=== PATIENT | female | born 1940 | race Caucasian/White ===

== ENCOUNTER 2024-05-21 11:40 | Outpatient (AMB) | payer MEDICARE, SELFPAY ==
--- NOTE | 2024-05-21 11:44 | MHC.PC.OV ---
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 Accompanied by: Self / Same As Patient Allergies codeine Allergy (Severe, Verified 05/21/24 11:54) Gastrointestinal Upset Tobacco use date assessed: 05/21/24 Fall risk assessment: No Falls in past year Last assessed Fall Risk: 05/21/24 Dental Screening Dental Screen Date: 05/21/24 Did you have a dental visit in the last 12 months?: Yes Did you have a dental problem in the last 6 months where you did not have access to dental care?: No Was dental information given to patient?: Patient has dentist HPI HPI Comments History of Present Illness Details 83 year old female with a past medical history of hypertension, hyperlipidemia, AD, left breast cancer presenting for follow up Has been having issues with cheilits for some time, Irritation worse of upper lip. No tongue or throat swelling. No new medications CV: On amlodipine 10mg daily, hctz-lisinopril 12.5/20mg daily, pravastatin. Denies palpitations headaches, vision changes. She endorses chronic shortness of breath. Denies interval change Neuro: Cognitive impairment. On donepezil. Follows with the memory clinic. Completed neuropsych testing 10/2021 suggestive of cognitive impairment, potentially of alzheimer type. Lives along with dog, completes ADLS, drives. Her son manages her finances. She is just following up with telehealth now and would like to transfer meds to pcp Heme/Onc patient continues to follow with breast center yearly, complete yearly mammograms. continues anastrazole. ROS see HPI PHYSICAL EXAM: GENERAL: Alert and oriented x 3. NAD EYES: EOMI. Anicteric. HENT: Moist mucous membranes. No scleral icterus. No cervical lymphadenopathy. LUNGS: Clear to auscultation bilaterally. CARDIOVASCULAR: Regular rate and rhythm. No murmur. No JVD. ABDOMEN: Soft, non-tender +bs EXTREMITIES: No edema. Non-tender. SKIN: mild swelling, perioral redness, chapping of upper lip NEUROLOGIC: No focal neurological deficits. CN II-XII grossly intact PSYCHIATRIC: Cooperative. Appropriate mood and affect [facility] Medical History (Updated 05/23/24 @ 10:51 by Jeni Smith MD) Weakness Vomiting Left thyroid nodule Breast cancer, left breast Cognitive impairment Hemorrhoids Hypertension Hyperlipidemia Surgical History (Updated 05/21/24 @ 12:08 by Allyson Troy CMA) History of colonoscopy History of laparoscopic cholecystectomy Status post cataract extraction and insertion of intraocular lens of left eye History of lumpectomy of left breast History of colpocleisis Family History (Updated 05/21/24 @ 12:18 by Allyson Troy CMA) Mother Dementia CAD (coronary artery disease) Father Stomach cancer Sister Alzheimer dementia Chronic kidney disease CAD (coronary artery disease) Brother Cirrhosis of liver Diabetes Social History (Updated 05/21/24 @ 12:10 by Allyson Troy CMA) Household Members: None Housing: House 75 years or older and lives alone: No Alcohol intake: never Patient Tobacco Use Status: Never used Tobacco e-Cigarette/Vaping Use: Never Used service: No Current occupational status: retired Sexual orientation: Straight/Heterosexual Gender identity: Female Cognitive needs: Yes Hearing needs: No Vision needs: No Questionnaire PHQ-9 Over the last 2 weeks, how often have you been bothered by any of the following problems? 1. Little interest or pleasure in doing things: not at all 2. Feeling down, depressed, or hopeless: not at all 3. Trouble falling or staying asleep, or sleeping too much: several days 4. Feeling tired or having little energy: several days 5. Poor appetite or overeating: not at all 6. Feeling bad about yourself - or that you are a failure or have let yourself or your family down: not at all 7. Trouble concentrating on things, such as reading the newspaper or watching television: not at all 8. Moving or speaking so slowly that other people could have noticed. Or the opposite - being so fidgety or restless that you have been moving around a lot more than usual: not at all 9. Thoughts that you would be better off or of hurting yourself in some way: not at all Total score: 2 Depression Screening Interpretation: Negative Depression Screening Done: Yes 61130 - PHQ-9 Billing: Yes Source: Developed by Drs. Omar Izaguirre, Kalia Aceves and colleagues, with an educational april from [employer]. Thrive Questionnaire Date Thrive assessed: 05/21/24 I am a: Patient What is your living situation today?: I have a steady place to live Within the past 12 months, did the food you bought not last and you didn't have the money to get more?: Never true Within the past 12 months, did you worry whether your food would run out before you got money to buy more?: Never true Do you have trouble paying for medicines?: No Do you have trouble getting transportation to medical appointments?: No Do you have trouble paying your heating and electricity bill?: No Do you have trouble taking care of your child, family member or friend?: No Do you have trouble with day-to-day activities such as bathing, preparing meals, shopping, managing finances, etc.?: No Are you currently unemployed and looking for a job?: No Are you interested in more education?: No Please select the resources that you would like help with: None Currently or been in a relationship where the following occur: No concerns reported THRIVE Score: 0 AUDIT C Alcohol Use Questionnaire (AUDIT-C) 1. How often do you have a drink containing alcohol?: Never 3. How often do you have six or more drinks on one occasion?: Never Total Score: 0 HATTIE-7 AMB Questionnaire HATTIE-7 Date HATTIE - 7 assessed: 05/21/24 Feeling nervous, anxious, or on edge: 0 = Not at all Not being able to stop or control worryin = Not at all Worrying too much about different things: 0 = Not at all Trouble relaxin = Not at all Being so restless that it is hard to sit still: 0 = Not at all Becoming easily annoyed or irritable: 0 = Not at all Feeling afraid as if something awful might happen: 0 = Not at all Total HATTIE-7 score (0-4 normal; 5-9 mild; 10-14 moderate; 15-21 severe): 0 Source: Developed by Radha Ortiz Kurt Kroenke and colleagues, with an educational april from [employer]. HATTIE-7 Assessment Billing HATTIE-7 Assessment Tool: HATTIE-7 Assessment 84121 Physical exam (Primary Care) Vital Signs: Last Vital Signs Pulse 101 H 05/21/24 11:45 Resp 13 05/21/24 11:45 BP 136/58 L 05/21/24 11:45 Pulse Ox 99 05/21/24 11:45 Oxygen Delivery Method Room Air 05/21/24 11:45 BMI result Body Mass Index 23.1 Tobacco/Smoking Status: Tobacco use Status Tobacco use date assessed 05/21/24 05/21/24 11:55 Patient Tobacco Use Status Never used Tobacco 05/21/24 12:10 e-Cigarette/Vaping Use Never Used 05/21/24 12:10 PHQ-9: PHQ-9 Score PHQ-9: Total score 2 05/23/24 10:52 Depression Screening Interpretation: Negative Thrive Assessment: Date of Thrive Assessment Date Thrive assessed 05/21/24 05/21/24 12:01 Currently or been in a relationship where the following occur: No concerns reported Assessment and Plan Assessment & Plan (1) Cheilitis due to atopic dermatitis: Code(s): K13.0 - Diseases of lips; L20.9 - Atopic dermatitis, unspecified Plan: topical low dose steroid. Avoid swallowing. Two doses for fluconazole (2) Breast cancer, left breast: Comment: ILC, T1b Nx, Stage 1, ER/AR positive, Her-2/shyla negative, 2016 Code(s): C50.912 - Malignant neoplasm of unspecified site of left female breast Qualifiers: Breast location: unspecified site of breast Estrogen receptor status: unspecified Patient sex: female Qualified Code(s): C50.912 - Malignant neoplasm of unspecified site of left female breast Plan: continue anastrazole (3) Cognitive impairment: Code(s): R41.89 - Other symptoms and signs involving cognitive functions and awareness (4) Hypertension: Code(s): I10 - Essential (primary) hypertension Medications: New triamcinolone acetonide 0.1% 1 appl topical BID 14 days 30 grams 0RF fluconazole 150 mg PO Q3D 2 tabs 0RF Coding Level of Care Code Est Pt Level 5 (38849) Complex EM visit Add On G2211 Diagnoses Cheilitis due to atopic dermatitis K13.0; L20.9 Malignant neoplasm of left female breast, unspecified estrogen receptor status, unspecified site of breast C50.912 Breast location: unspecified site of breast Estrogen receptor status: unspecified Patient sex: female Cognitive impairment R41.89 Hypertension I10 Additional Codes HATTIE-7 Assessment Billing - HATTIE-7 Assessment Tool: HATTIE-7 Assessment [id number] ([id number])
[2024-05-21 11:45] VITALS: BP 136/58; PULSE 101; RESP 13; O2SAT 99; BMI 23.1
== END 2024-05-21 12:13 | disposition home or self-care (01) ==
PROVIDERS: PCP Internal Medicine; Visit Provider Internal Medicine
DX: I10 Essential (primary) hypertension (principal); C50.912 Malignant neoplasm of unspecified site of left female breast; K13.0 Diseases of lips; L20.9 Atopic dermatitis, unspecified; R41.89 Other symptoms and signs involving cognitive functions and awareness
CPT/HCPCS: 99214; G2211

== ENCOUNTER 2024-11-15 14:22 | Outpatient (AMB) | payer MEDICARE, SELFPAY ==
--- NOTE | 2024-11-15 14:24 | MHC.PC.OV ---
Vital Signs 11/15/24 14:27 Height 5 ft 6 in BP 122/58 L Blood Pressure Location Lt brachial Position Sitting Pulse 78 Pulse Source Pulse Oximeter Pulse Oximetry (%) 98 Oxygen Delivery Method Room Air Intake Visit Reasons: swv [id number] Intake Note: Medical annual wellness Mental Health Professional Required: No Allergies codeine Allergy (Severe, Verified 11/15/24 14:25) Gastrointestinal Upset Tobacco use date assessed: 05/21/24 Dental Screening Dental Screen Date: 05/21/24 HPI HPI Comments History of Present Illness Details 83 year old female with a past medical history of hypertension, hyperlipidemia, AD, left breast cancer presenting for AWV HRA reviewed. No issues identified 3/3 Memory Negative fall risk CV: On amlodipine 10mg daily, hctz-lisinopril 12.5/20mg daily, pravastatin. Denies palpitations headaches, vision changes. She endorses stable chronic shortness of breath. Denies interval change Neuro: Cognitive impairment. On donepezil. Follows with the memory clinic. Completed neuropsych testing 10/2021 suggestive of cognitive impairment, potentially of alzheimer type. Lives along with dog, completes ADLS, drives. Her son manages her finances. She is just following up with telehealth now and would like to transfer meds to pcp Heme/Onc: She reports no longer following patient continues to follow with breast center yearly, complete yearly mammograms. continues anastrazole. ROS see HPI PHYSICAL EXAM: GENERAL: Alert and oriented x 3. NAD EYES: EOMI. Anicteric. HENT: Moist mucous membranes. No scleral icterus. No cervical lymphadenopathy. LUNGS: Clear to auscultation bilaterally. CARDIOVASCULAR: Regular rate and rhythm. No murmur. No JVD. ABDOMEN: Soft, non-tender +bs EXTREMITIES: No edema. Non-tender. SKIN: mild swelling, perioral redness, chapping of upper lip NEUROLOGIC: No focal neurological deficits. CN II-XII grossly intact PSYCHIATRIC: Cooperative. Appropriate mood and affect [facility] Medical History (Updated 11/21/24 @ 19:44 by Jeni Smith MD) Weakness Vomiting Left thyroid nodule Breast cancer, left breast Cognitive impairment Hemorrhoids Hypertension Hyperlipidemia Surgical History History of colonoscopy History of laparoscopic cholecystectomy Status post cataract extraction and insertion of intraocular lens of left eye History of lumpectomy of left breast History of colpocleisis Family History (Updated 11/15/24 @ 14:27 by Bebe Godoy CMA) Mother Dementia CAD (coronary artery disease) Father Stomach cancer Sister Alzheimer dementia Chronic kidney disease CAD (coronary artery disease) Brother Cirrhosis of liver Diabetes Social History (Updated 11/15/24 @ 14:27 by Bebe Godoy CMA) Household Members: None Housing: House 75 years or older and lives alone: No Alcohol intake: never Patient Tobacco Use Status: Never used Tobacco e-Cigarette/Vaping Use: Never Used Use of substances other than those prescribed or required for medical reasons: No service: No Current occupational status: retired Sexual orientation: Straight/Heterosexual Gender identity: Female Cognitive needs: Yes Hearing needs: No Vision needs: No Questionnaire Thrive Questionnaire Date Thrive assessed: 05/21/24 HATTIE-7 AMB Questionnaire HATTIE-7 Date HATTIE - 7 assessed: 05/21/24 Source: Developed by Drs. Omar Izaguirre, Radha Giron, Kalia Heck and colleagues, with an educational april from [employer]. Physical exam (Primary Care) Vital Signs: Last Vital Signs Pulse 78 11/15/24 14:27 BP 122/58 L 11/15/24 14:27 Pulse Ox 98 11/15/24 14:27 Oxygen Delivery Method Room Air 11/15/24 14:27 Tobacco/Smoking Status: Tobacco use Status Tobacco use date assessed 05/21/24 11/15/24 14:29 Patient Tobacco Use Status Never used Tobacco 11/15/24 14:29 e-Cigarette/Vaping Use Never Used 11/15/24 14:29 Thrive Assessment: Date of Thrive Assessment Date Thrive assessed 05/21/24 11/15/24 14:29 Coding Level of Care Code Est Pt Level 4 (42279) Diagnoses Encounter for annual wellness visit (AWV) in Medicare patient Z00.00 Primary hypertension I10 Hypertension type: primary hypertension Cognitive impairment R41.89 Assessment & Plan Assessment & Plan (1) Encounter for annual wellness visit (AWV) in Medicare patient: Code(s): Z00.00 - Encounter for general adult medical examination without abnormal findings Category: Medical Plan: HRA reviewed, scanned Medications reconciled (2) Hypertension: Code(s): I10 - Essential (primary) hypertension Category: Medical Qualifiers: Hypertension type: primary hypertension Qualified Code(s): I10 - Essential (primary) hypertension Plan: Controlled on current medication (3) Cognitive impairment: Code(s): R41.89 - Other symptoms and signs involving cognitive functions and awareness Category: Medical Plan: continue donepezil Orders: Orders Comprehensive Met. Panel 11/15/24 C50.912 - Malignant neoplasm of unspecified site of left female breast, E78.5 - Hyperlipidemia, unspecified, I10 - Essential (primary) hypertension, R41.89 - Other symptoms and signs involving cognitive functions and awareness Lipid Panel 11/15/24 C50.912 - Malignant neoplasm of unspecified site of left female breast, E78.5 - Hyperlipidemia, unspecified, I10 - Essential (primary) hypertension, R41.89 - Other symptoms and signs involving cognitive functions and awareness Complete Blood Count Auto Diff 11/15/24 C50.912 - Malignant neoplasm of unspecified site of left female breast, E78.5 - Hyperlipidemia, unspecified, I10 - Essential (primary) hypertension, R41.89 - Other symptoms and signs involving cognitive functions and awareness TSH reflex Free T4 11/15/24 C50.912 - Malignant neoplasm of unspecified site of left female breast, E78.5 - Hyperlipidemia, unspecified, I10 - Essential (primary) hypertension, R41.89 - Other symptoms and signs involving cognitive functions and awareness Medications: New amlodipine 10 mg PO DAILY 90 tabs 3RF pravastatin 20 mg PO DAILY 90 tabs 3RF donepezil 10 mg PO DAILY 90 tabs 3RF lisinopril-hydrochlorothiazide 20-12.5 mg 1 tab PO DAILY 90 tabs 3RF Discontinued fluconazole Discontinued Reason: Doctor's Order 150 mg PO Q3D 2 tabs 0RF
[2024-11-15 14:27] VITALS: BP 122/58; PULSE 78; O2SAT 98
== END 2024-11-15 16:02 | disposition home or self-care (01) ==
PROVIDERS: PCP Internal Medicine; Visit Provider Internal Medicine
DX: Z00.00 Encounter for general adult medical examination without abnormal findings (principal); I10 Essential (primary) hypertension; R41.89 Other symptoms and signs involving cognitive functions and awareness

== ENCOUNTER → 2024-11-15 14:22 | Outpatient (BNVA) | payer MEDICARE, SELFPAY | PROVIDERS: PCP Internal Medicine; Visit Provider Internal Medicine | DX: Z00.00 Encounter for general adult medical examination without abnormal findings (principal); I10 Essential (primary) hypertension; E78.5 Hyperlipidemia, unspecified; R41.89 Other symptoms and signs involving cognitive functions and awareness; Z79.899 Other long term (current) drug therapy | CPT/HCPCS: 99212 ==

== ENCOUNTER 2024-12-21 10:26 | Outpatient (AMB) | payer MEDICARE, SELFPAY ==
--- NOTE | 2024-12-21 10:43 | MHC.PC.OV ---
Vital Signs 12/21/24 10:47 Height 5 ft 6 in Weight 140 lb BMI 22.6 BP 132/70 Blood Pressure Location Lt brachial Position Sitting Respiration 14 Pulse 84 Pulse Source Pulse Oximeter Temp 98 F Temp Source Oral Pulse Oximetry (%) 94 Oxygen Delivery Method Room Air Intake Visit Reasons: Cough Intake Note: Cough since Friday. No covid or flu test. 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 some fatigue, generally feeling tired, flulike. Minimal wheezing. Has not checked temp CV: On amlodipine 10mg daily, hctz-lisinopril 12.5/20mg daily, pravastatin. Denies palpitations headaches, vision changes. Neuro: Cognitive impairment. On donepezil. Follows with the memory clinic. Completed neuropsych testing 10/2021 suggestive of cognitive impairment, potentially of alzheimer type. Lives along with dog, completes ADLS, drives. Her son manages her finances. Heme/Onc: She reports no longer following patient continues to follow with breast center yearly, complete yearly mammograms. continues anastrazole. ROS see HPI PHYSICAL EXAM: GENERAL: Alert and oriented x 3. NAD EYES: EOMI. Anicteric. HENT: Moist mucous membranes. No scleral icterus. No cervical lymphadenopathy. LUNGS: Clear to auscultation bilaterally. CARDIOVASCULAR: Left sided rhonci ABDOMEN: Soft, non-tender +bs EXTREMITIES: No edema. Non-tender. SKIN: mild swelling, perioral redness, chapping of upper lip NEUROLOGIC: No focal neurological deficits. CN II-XII grossly intact PSYCHIATRIC: Cooperative. Appropriate mood and affect [facility] Medical History Weakness Vomiting Left thyroid nodule Breast cancer, left breast Cognitive impairment Hemorrhoids Hypertension Hyperlipidemia Surgical History History of colonoscopy History of laparoscopic cholecystectomy Status post cataract extraction and insertion of intraocular lens of left eye History of lumpectomy of left breast History of colpocleisis Family History Mother Dementia CAD (coronary artery disease) Father Stomach cancer Sister Alzheimer dementia Chronic kidney disease CAD (coronary artery disease) Brother Cirrhosis of liver Diabetes Social History Household Members: None Housing: House 75 years or older and lives alone: No Alcohol intake: never Patient Tobacco Use Status: Never used Tobacco e-Cigarette/Vaping Use: Never Used service: No Current occupational status: retired Sexual orientation: Straight/Heterosexual Gender identity: Female Cognitive needs: Yes Hearing needs: No Vision needs: No Questionnaire PHQ-9 Over the last 2 weeks, how often have you been bothered by any of the following problems? 1. Little interest or pleasure in doing things: not at all 2. Feeling down, depressed, or hopeless: not at all 3. Trouble falling or staying asleep, or sleeping too much: not at all 4. Feeling tired or having little energy: not at all 5. Poor appetite or overeating: not at all 6. Feeling bad about yourself - or that you are a failure or have let yourself or your family down: not at all 7. Trouble concentrating on things, such as reading the newspaper or watching television: not at all 8. Moving or speaking so slowly that other people could have noticed. Or the opposite - being so fidgety or restless that you have been moving around a lot more than usual: not at all 9. Thoughts that you would be better off or of hurting yourself in some way: not at all Total score: 0 Depression Screening Interpretation: Negative Depression Screening Done: Yes 95692 - PHQ-9 Billing: Yes Source: Developed by Drs. Omar Izaguirre, Radha Giron, Kalia Heck and colleagues, with an educational april from [employer]. Thrive Questionnaire Date Thrive assessed: 05/21/24 I am a: Patient What is your living situation today?: I have a steady place to live Within the past 12 months, did the food you bought not last and you didn't have the money to get more?: I choose not to answer this question Within the past 12 months, did you worry whether your food would run out before you got money to buy more?: I choose not to answer this question Do you have trouble paying for medicines?: I choose not to answer this question Do you have trouble getting transportation to medical appointments?: Yes Do you have trouble paying your heating and electricity bill?: I choose not to answer this question Do you have trouble taking care of your child, family member or friend?: I choose not to answer this question Do you have trouble with day-to-day activities such as bathing, preparing meals, shopping, managing finances, etc.?: I choose not to answer this question Are you currently unemployed and looking for a job?: I choose not to answer this question Are you interested in more education?: I choose not to answer this question Please select the resources that you would like help with: Transportation Currently or been in a relationship where the following occur: I choose not to answer THRIVE Score: 1 AUDIT C Alcohol Use Questionnaire (AUDIT-C) 1. How often do you have a drink containing alcohol?: Never Total Score: 0 HATTIE-7 AMB Questionnaire HATTIE-7 Date HATTIE - 7 assessed: 05/21/24 Feeling nervous, anxious, or on edge: 0 = Not at all Not being able to stop or control worryin = Not at all Worrying too much about different things: 0 = Not at all Trouble relaxin = Not at all Being so restless that it is hard to sit still: 0 = Not at all Becoming easily annoyed or irritable: 0 = Not at all Feeling afraid as if something awful might happen: 0 = Not at all Total HATTIE-7 score (0-4 normal; 5-9 mild; 10-14 moderate; 15-21 severe): 0 Source: Developed by Drs. Omar Izaguirre, Radha Giron, Kalia Heck and colleagues, with an educational april from [employer]. Physical exam (Primary Care) Vital Signs: Last Vital Signs Temp 98 F 12/21/24 10:47 Pulse 84 12/21/24 10:47 Resp 14 12/21/24 10:47 BP 132/70 12/21/24 10:47 Pulse Ox 94 12/21/24 10:47 Oxygen Delivery Method Room Air 12/21/24 10:47 BMI result Body Mass Index 22.6 Tobacco/Smoking Status: Tobacco use Status Tobacco use date assessed 05/21/24 12/21/24 10:44 Patient Tobacco Use Status Never used Tobacco 12/21/24 10:44 e-Cigarette/Vaping Use Never Used 12/21/24 10:44 PHQ-9: PHQ-9 Score PHQ-9: Total score 0 12/21/24 10:54 Depression Screening Interpretation: Negative Thrive Assessment: Date of Thrive Assessment Date Thrive assessed 05/21/24 12/21/24 10:44 Currently or been in a relationship where the following occur: I choose not to answer Coding Level of Care Code Est Pt Level 4 (30619) Diagnoses Acute cough R05.1 Cough type: acute Additional Codes PHQ-9 - 52114 - PHQ-9 Billing: Yes ([id number]) Assessment & Plan Assessment & Plan (1) Cough: Code(s): R05.9 - Cough, unspecified Category: Medical Qualifiers: Cough type: acute Qualified Code(s): R05.1 - Acute cough Plan: Given left sided rhonci, clinical symptoms will prescribed doxycycline, tessalon perles If no improvement or resolution will obtain imaging. Call for persistent or worsening symptoms Medications: New doxycycline hyclate 100 mg PO BID 20 tabs 0RF benzonatate 100 mg PO BID PRN 20 caps 0RF cough doxycycline hyclate 100 mg PO BID 20 tabs 0RF benzonatate 100 mg PO BID PRN 20 caps 0RF cough
[2024-12-21 10:47] VITALS: BP 132/70; PULSE 84; RESP 14; TEMP 36.6; O2SAT 94; BMI 22.6
--- OUTSIDE RECORDS SUMMARY | 2024-12-21 11:17 | XMS_ITS | Clinical Summary ---
Author Organization [facility] Address [address] [place] [id number] Care Team Providers Care Care Transition Mgr Name Role Phone Michael Vásquez MD Primary Care Provider [phone] Allergies No known active allergies Medications Medication Sig Dispensed Refills Start Date End Date Status lisinopril 20 MG TABS 1 tablet, hydrochlorothiazide 12.5 MG CAPS 1 capsule Take 1 tablet by mouth daily. 0 Active amLODIPine (NORVASC) tablet 5 mg Take 5 mg by mouth daily. 0 Active Marshall-3 Fatty Acids (FISH OIL PO) Take by mouth. 0 Active naproxen (NAPROSYN) 500 MG tablet Take 500 mg by mouth as needed. 0 Active pravastatin (PRAVACHOL) tablet 20 mg Take 20 mg by mouth daily. 0 Active CALCIUM 600-D 600-400 MG-UNIT TABS TAKE 1 TABLET BY MOUTH DAILY. 90 tablet 1 04/29/2018 Active desoximetasone (TOPICORT) 0.05 % cream Apply 1 application topically 2 (two) times a day. 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, estrogen receptor positive 11/03/2017 Family History Medical History Relation Name Comments Liver disease Brother No Sig Med Hx Daughter 1 No Sig Med Hx Daughter 2 Cancer Father stomach No Sig Med Hx Mother Heart attack Sister 1 Alzheimer's disease Sister 2 No Sig Med Hx Son Relation Name Status Comments Brother (Age 55) Daughter 1 Alive Daughter 2 Alive Father Mother (Age 94) Sister 1 (Age 69) Sister 2 Alive Son Alive Social History Tobacco Use Types Packs/Day Years Used Date Smoking Tobacco: Never Smokeless Tobacco: Never Alcohol Use Standard Drinks/Week Comments No 0 (1 standard drink = 0.6 oz pur e alcohol) Sex and Gender Information Value Date Recorded Sex Assigned at Not on file Gender Identity Not on file Sexual Orientation Not on file Last Filed Vital Signs Vital Sign Reading Time Taken Comments Blood Pressure 146/56 10/27/2019 9:22 AM EST Pulse 79 10/27/2019 9:22 AM EST Temperature 36.8 ??C (98.3 ??F) 10/27/2019 9 :22 AM EST Respiratory Rate - - Oxygen Saturation 98% 06/30/2019 9:1 8 AM EDT complains of shortness of breath Inhaled Oxygen Concentration - - Weight 73 kg (161 lb) 10/27/2019 9:22 AM EST Height 167.6 cm (5' 6 ) 10/27/2019 9:22 AM EST Body Mass Index 25.99 10/27/2019 9:22 AM EST Plan of Treatment Health Maintenance Due Date Last Done Comments COVID-19 Vaccine (#1) 1946 Pneumococcal Vaccine (1 of 2 - PCV) 1947 Depression Screening 1953 Preventative Health Evaluation 1959 DTap / Tdap / Td (1 - Tdap) 1960 Shingrix-Zoster Vaccine (1 of 2) 1960 Fall Risk Assessment 2006 Osteoporosis Screening (DEXA Scan) 2006 RSV Adult > 60+ Yrs or Pregn ant (1 - 1-dose 75+ series) 2016 Influenza Vaccine (#1) 2024 Hepatitis B Vaccines Aged Out No long er eligible based on patient's age to complete this topic RSV Ped < 20 months Aged Out No longe r eligible based on patient's age to complete this topic Care Teams Care Transition Mgr Relationship Specialty Start Date End Date Michael Vásquez MD [address] [place] [address], [facility] [address] [place], [place] [id number] PCP - General Wax Pattern Assembler 11/03/17
== END 2024-12-21 11:02 | disposition home or self-care (01) ==
PROVIDERS: PCP Internal Medicine; Visit Provider Internal Medicine
DX: R05.1 Acute cough (principal)

== ENCOUNTER → 2024-12-21 10:26 | Outpatient (BNVA) | payer MEDICARE, SELFPAY | PROVIDERS: PCP Internal Medicine; Visit Provider Internal Medicine | DX: R05.1 Acute cough (principal); I10 Essential (primary) hypertension; G31.84 Mild cognitive impairment of uncertain or unknown etiology; C50.919 Malignant neoplasm of unspecified site of unspecified female breast; Z79.811 Long term (current) use of aromatase inhibitors; Z79.899 Other long term (current) drug therapy | CPT/HCPCS: 96127; 99212 ==

== ENCOUNTER 2025-08-09 15:03 | Outpatient (AMB) | payer MEDICARE, SELFPAY ==
--- NOTE | 2025-08-09 15:24 | MHC.PC.OV ---
Vital Signs 08/09/25 15:26 BMI Reason not done Patient refused/unable BP 118/48 L Blood Pressure Location Lt brachial Position Sitting Respiration 14 Pulse 74 Pulse Source Pulse Oximeter Temp 98.2 F Temp Source Oral Pulse Oximetry (%) 95 Oxygen Delivery Method Room Air Intake Visit Reasons: shaikh/ outpatient echo? Intake Note: Emergency room follow up Newspaper Inserter Required: No Allergies codeine Allergy (Severe, Verified 08/09/25 15:24) Gastrointestinal Upset Tobacco use date assessed: 08/09/25 Fall risk assessment: 1 Fall in past year Last assessed Fall Risk: 08/09/25 Dental Screening Dental Screen Date: 05/21/24 HPI HPI Comments History of Present Illness Details 83 year old female with a past medical history of hypertension, hyperlipidemia, AD, left breast cancer presenting for ER follow up The patient was evaluated at [facility] on 06/24/2025. Presented with a two week history of back pain. She had tripped 2 weeks prior. Mid, lower back. Was not using cane at the time of the fall. CT performed. no abd/pelvis acute. 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 She notes back pain is still bothersome. Taking tylenol at home. Does not want stronger medication. Ok for lidocaine patches. was recommended to have PT. She lives home alone. Has been recommended to ambulate with a cane. She has memory loss but does not want to leave her home or pet. CV: On amlodipine 10mg daily, hctz-lisinopril 12.5/20mg daily, pravastatin. Denies palpitations headaches, vision changes. Neuro: Cognitive impairment. On donepezil. Was previously seen with the memory clinic-she does not recall this testing/visits. Completed neuropsych testing 10/2021 suggestive of cognitive impairment, potentially of alzheimer type. Lives along with dog, completes ADLS, drives. Her son manages her finances. Heme/Onc: She reports no longer following patient continues to follow with breast center yearly, complete yearly mammograms. ROS see HPI PHYSICAL EXAM: GENERAL: Alert and oriented x 3. NAD EYES: EOMI. Anicteric. HENT: Moist mucous membranes. No scleral icterus. No cervical lymphadenopathy. LUNGS: Clear to auscultation bilaterally. CARDIOVASCULAR: Clear to auscultation ABDOMEN: Soft, non-tender +bs EXTREMITIES: No edema. Non-tender. SKIN: warm, dry no rashes NEUROLOGIC: No focal neurological deficits. CN II-XII grossly intact PSYCHIATRIC: Cooperative. Appropriate mood and affect [facility] Medical History Weakness Vomiting Left thyroid nodule Breast cancer, left breast Cognitive impairment Hemorrhoids Hypertension Hyperlipidemia Surgical History History of colonoscopy History of laparoscopic cholecystectomy Status post cataract extraction and insertion of intraocular lens of left eye History of lumpectomy of left breast History of colpocleisis Family History Mother Dementia CAD (coronary artery disease) Father Stomach cancer Sister Alzheimer dementia Chronic kidney disease CAD (coronary artery disease) Brother Cirrhosis of liver Diabetes Social History Household Members: None Housing: House 75 years or older and lives alone: No Alcohol intake: never Patient Tobacco Use Status: Never used Tobacco e-Cigarette/Vaping Use: Never Used service: No Current occupational status: retired Sexual orientation: Straight/Heterosexual Gender identity: Female Cognitive needs: Yes Hearing needs: No Vision needs: No Questionnaire Thrive Questionnaire Date Thrive assessed: 12/21/24 I am a: Patient What is your living situation today?: I have a steady place to live Within the past 12 months, did the food you bought not last and you didn't have the money to get more?: I choose not to answer this question Within the past 12 months, did you worry whether your food would run out before you got money to buy more?: I choose not to answer this question Do you have trouble paying for medicines?: I choose not to answer this question Do you have trouble getting transportation to medical appointments?: Yes Do you have trouble paying your heating and electricity bill?: I choose not to answer this question Do you have trouble taking care of your child, family member or friend?: I choose not to answer this question Do you have trouble with day-to-day activities such as bathing, preparing meals, shopping, managing finances, etc.?: I choose not to answer this question Are you currently unemployed and looking for a job?: I choose not to answer this question Are you interested in more education?: I choose not to answer this question Please select the resources that you would like help with: Transportation Currently or been in a relationship where the following occur: I choose not to answer THRIVE Score: 1 AUDIT C Alcohol Use Questionnaire (AUDIT-C) 1. How often do you have a drink containing alcohol?: Never 3. How often do you have six or more drinks on one occasion?: Never Total Score: 0 HATTIE-7 AMB Questionnaire HATTIE-7 Date HATTIE - 7 assessed: 05/21/24 Source: Developed by Drs. Omar Izaguirre, Radha Giron, Kalia Heck and colleagues, with an educational april from [employer]. Physical exam (Primary Care) Vital Signs: Last Vital Signs Temp 98.2 F 08/09/25 15:26 Pulse 74 08/09/25 15:26 Resp 14 08/09/25 15:26 BP 118/48 L 08/09/25 15:26 Pulse Ox 95 08/09/25 15:26 Oxygen Delivery Method Room Air 08/09/25 15:26 Tobacco/Smoking Status: Tobacco use Status Tobacco use date assessed 08/09/25 08/09/25 15:29 Patient Tobacco Use Status Never used Tobacco 08/09/25 15:29 e-Cigarette/Vaping Use Never Used 08/09/25 15:29 Thrive Assessment: Date of Thrive Assessment Date Thrive assessed 12/21/24 08/09/25 15:29 Currently or been in a relationship where the following occur: I choose not to answer Coding Level of Care Code Est Pt Level 4 (15828) Complex EM visit Add On G2211 Diagnoses Fall, subsequent encounter W19.XXXD Encounter type: subsequent encounter Bilateral low back pain, unspecified chronicity, unspecified whether sciatica present M54.50 Back pain location: low back pain Chronicity: unspecified Back pain laterality: bilateral Sciatica presence: unspecified whether sciatica present Primary hypertension I10 Hypertension type: primary hypertension Cognitive impairment R41.89 Assessment & Plan Assessment & Plan (1) Fall: Code(s): W19.XXXA - Unspecified fall, initial encounter Category: Medical Qualifiers: Encounter type: subsequent encounter Qualified Code(s): W19.XXXD - Unspecified fall, subsequent encounter (2) Back pain: Code(s): M54.9 - Dorsalgia, unspecified Category: Medical Qualifiers: Back pain location: low back pain Chronicity: unspecified Back pain laterality: bilateral Sciatica presence: unspecified whether sciatica present Qualified Code(s): M54.50 - Low back pain, unspecified (3) Hypertension: Code(s): I10 - Essential (primary) hypertension Category: Medical Qualifiers: Hypertension type: primary hypertension Qualified Code(s): I10 - Essential (primary) hypertension (4) Cognitive impairment: Code(s): R41.89 - Other symptoms and signs involving cognitive functions and awareness Category: Medical Plan 84 year old presenting for follow up ER course reviewed. Continues to have some back pain. Is essentially homebound. In WC today. home PT order requested Discussed memory loss. She declines FLAT IRONER. Does not want to move out of the home stop lisinopril hctz. start lower dose lisinopril to 10mg to avoid dehydration, orthostasis Labs ordered Orders: Orders UA and rflx microscopic 08/09/25 E78.5 - Hyperlipidemia, unspecified, I10 - Essential (primary) hypertension, R29.6 - Repeated falls, Z13.0 - Encounter for screening for diseases of the blood and blood-forming organs and certain disorders involving the immune mechanism Urine Culture 08/09/25 E78.5 - Hyperlipidemia, unspecified, I10 - Essential (primary) hypertension, R29.6 - Repeated falls, Z13.0 - Encounter for screening for diseases of the blood and blood-forming organs and certain disorders involving the immune mechanism TSH reflex Free T4 08/09/25 E78.5 - Hyperlipidemia, unspecified, I10 - Essential (primary) hypertension, R29.6 - Repeated falls, Z13.0 - Encounter for screening for diseases of the blood and blood-forming organs and certain disorders involving the immune mechanism Complete Blood Count Auto Diff 08/09/25 E78.5 - Hyperlipidemia, unspecified, I10 - Essential (primary) hypertension, R29.6 - Repeated falls, Z13.0 - Encounter for screening for diseases of the blood and blood-forming organs and certain disorders involving the immune mechanism Comprehensive Met. Panel 08/09/25 E78.5 - Hyperlipidemia, unspecified, I10 - Essential (primary) hypertension, R29.6 - Repeated falls, Z13.0 - Encounter for screening for diseases of the blood and blood-forming organs and certain disorders involving the immune mechanism Magnesium 08/09/25 E78.5 - Hyperlipidemia, unspecified, I10 - Essential (primary) hypertension, R29.6 - Repeated falls, Z13.0 - Encounter for screening for diseases of the blood and blood-forming organs and certain disorders involving the immune mechanism Referrals Home Health Referral M54.9 - Dorsalgia, unspecified, W19.XXXA - Unspecified fall, initial encounter Medications: New lisinopril 10 mg PO DAILY 90 tabs 3RF lidocaine 5% leave on most painful area for up to 12 hrs 2 patches topical DAILY 60 ea 3RF Discontinued lisinopril-hydrochlorothiazide 20-12.5 mg Discontinued Reason: Duplicate 1 tab PO DAILY 90 tabs 3RF
[2025-08-09 15:26] VITALS: BP 118/48; PULSE 74; RESP 14; TEMP 36.8; O2SAT 95
--- OUTSIDE RECORDS SUMMARY | 2025-08-09 18:03 | XMS_ITS ---
Author Name [facility] Organization Unknown Care Team Organization Name Specialty Phone Email Start Date End Da te [facility] NULL Primary Care 09/16/2023 07/05/2024
--- OUTSIDE RECORDS SUMMARY | 2025-08-09 18:03 | XMS_ITS | Clinical Summary ---
Author Organization [facility] Address [address] [place] [address] Phone Care Team Providers Care Lapel Stitcher Name Role Phone Jeni Gil MD Primary Care Provider Allergies Active Allergy Reactions Criticality Noted Date Comments Codeine 04/20/2024 Other Reaction(s): GI upset Medications amLODIPine (NORVASC) 10 MG tablet Take 1 tablet by mouth every morning. 02/26/2024 Active donepeziL (ARICEPT) 10 MG tablet Take 1 tablet by mouth every morning. 03/31/2024 Active lisinopril-hydro CHLOROthiazide (PRINZIDE,ZESTOR ETIC) 20-12.5 mg per tablet Take 1 tablet by mouth every morning. 04/10/2024 Active pravastatin (PRAVACHOL) 20 MG tablet Take 1 tablet by mouth every morning. 03/13/2024 Active aspirin 81 MG EC tablet Take 81 mg by mouth. 04/10/2023 Active Social History Tobacco Use Types Packs/Day Years Used Date Smoking Tobacco: Never Smokeless Tobacco: Never Tobacco Cessation:Counseling Given: Not Answered Education Answer Date Recorded Are you interested in more education? Not on yara e 04/20/2024 Are you concerned about learning? Not on file 04/20/2024 No 04/20/2024 No 04/20/2024 Digital Access Answer Date Recorded No 04/20/2024 No 04/20/2024 Reliable internet access at home? Not on file 04/20/2024 Device with a working camera? Not on file Comments Unknown Sex and Gender Information Value Date Recorded Sex Assigned at Not on file Legal Sex Female 9:42 AM EDT Gender Identity Not on file Sexual Orientation Not on file Last Filed Vital Signs Vital Sign Reading Time Taken Comments Blood Pressure 148/75 04/20/2024 9:48 AM EDT Pulse 72 04/20/2024 9:48 AM EDT Temperature 36.8 C (98.2 F) 04/20/2024 9:48 AM EDT Respiratory Rate 16 04/20/2024 9:48 AM EDT Oxygen Saturation 98% 04/20/2024 9:48 AM EDT Inhaled Oxygen Concentration - - Weight - - Height - - Body Mass Index - - Plan of Treatment Health Maintenance Due Date Last Done Comments Adult Td,Tdap Booster 1941 CREATININE LEVEL 1941 POTASSIUM LEVEL 1941 DEPRESSION SCREENING 1953 PNEUMOCOCCAL VACCINES (50+ y ears) (1 of 1 - PCV) 1991 ZOSTER VACCINES (1 of 2) 1991 OSTEOPOROSIS SCREENING INITI AL (ONE-TIME) 2006 RSV VACCINE (1 - 1-dose 75+ series) 2016 INFLUENZA VACCINE (#1) 2025 COVID-19 VACCINE ( - 2023-2 5 season) 2025 HEPATITIS A VACCINES Aged Out No long er eligible based on patient's age to complete this topic HIB VACCINES Aged Out No longer eligi ble based on patient's age to complete this topic MENINGOCOCCAL VACCINES (ACWY) Aged Out No longer eligible based on patient's age to complete this topic MENINGOCOCCAL VACCINES (B) Aged Out N o longer eligible based on patient's age to complete this topic Medical Devices Not on file Insurance [employer] HMO REPLACEMENT MEDICARE HMO REPLACEMENT [employer] HMO REPLACEMENT [employer] MEDIC[employer] HMO REPLACEMENT [address] [address] MEDICARE HMO REPLACEMENT [employer] H[employer] REPLACEMENT Care Teams Lapel Stitcher Relationship Specialty Start Date End Date Jeni Gil MD PCP - General Internal Medicine 04/20/24 Additional Source Comments The information contained in this document represents components of the legal health record. It is not the complete legal health record.[facility]
--- OUTSIDE RECORDS SUMMARY | 2025-08-09 18:03 | XMS_ITS | Clinical Summary ---
Author Organization [facility] Address [address] [place] [id number] Care Team Providers Care Automobile Washer Steam Name Role Phone Michael Vásquez MD Primary Care Provider [phone] Allergies No known active allergies Medications Medication Sig Dispensed Refills Start Date End Date Status lisinopril 20 MG TABS 1 tablet, hydrochlorothiazide 12.5 MG CAPS 1 capsule Take 1 tablet by mouth daily. 0 Active amLODIPine (NORVASC) tablet 5 mg Take 5 mg by mouth daily. 0 Active English-3 Fatty Acids (FISH OIL PO) Take by [...] 79 10/27/2019 9:22 AM EST Temperature 36.8 C (98.3 F) 10/27/2019 9:22 AM EST Respiratory Rate - - Oxygen [...] 1-dose 75+ series) 2016 Influenza Vaccine (#1) 2025 Hepatitis B Vaccines Aged Out No long er eligible based on patient's age to complete this topic RSV Ped < 20 months Aged Out No longe r eligible based on patient's age to complete this topic Care Teams Automobile Washer Steam Relationship Specialty Start Date End Date Michael Vásquez MD [address] [place] [address], [facility] [address] [place] [address] PCP - General Tile Sorter 11/03/17
== END 2025-08-09 16:49 | disposition home or self-care (01) ==
LOC: HO.HMCFM 15:03
PROVIDERS: PCP Internal Medicine; Visit Provider Internal Medicine
DX: M54.50 Low back pain, unspecified (principal); W19.XXXD Unspecified fall, subsequent encounter; I10 Essential (primary) hypertension; R41.89 Other symptoms and signs involving cognitive functions and awareness

== ENCOUNTER → 2025-08-09 15:03 | Outpatient (BNVA) | payer MEDICARE, SELFPAY | PROVIDERS: PCP Internal Medicine; Visit Provider Internal Medicine | DX: M54.50 Low back pain, unspecified (principal); I10 Essential (primary) hypertension; E78.5 Hyperlipidemia, unspecified; R41.89 Other symptoms and signs involving cognitive functions and awareness; Z79.899 Other long term (current) drug therapy; Z91.81 History of falling | CPT/HCPCS: 99212 ==